=== PATIENT | female | born 1960 | race Caucasian/White ===

== ENCOUNTER 2024-08-03 07:25 | Day surgery (SDC) | payer OTHER ==
[2024-08-01 11:26] VITALS: BMI 25.9
[2024-08-03] MEDS ORDERED: LIDOCAINE HCL/PF 2% SDV 5ML VIAL ONE (08:02)
[2024-08-03] MEDS ORDERED: PROPOFOL 80 ML ONE (08:02)
[2024-08-03 08:44] VITALS: TEMP 97.3
[2024-08-03 09:07] VITALS: BP 114/68; PULSE 66; RESP 19
== END 2024-08-03 09:26 | disposition home or self-care (01) ==
LOC: FASU-ENDO 07:25
PROVIDERS: ATTEND Internal Medicine Gastroenterology
PROC: 0DBL8ZX Excision of Transverse Colon, Via Natural or Artificial Opening Endoscopic, Diagnostic (ICD-10-PCS; 2024-08-03)
PROC: 0DBK8ZX Excision of Ascending Colon, Via Natural or Artificial Opening Endoscopic, Diagnostic (ICD-10-PCS; principal; 2024-08-03 08:14)
DX: Z12.11 Encounter for screening for malignant neoplasm of colon (principal); Z86.0109 Personal history of other colon polyps; Z80.0 Family history of malignant neoplasm of digestive organs
CPT/HCPCS: 88305-TC